=== PATIENT | male | born 1990 | race Caucasian/White ===

== ENCOUNTER 2019-11-14 06:22 | Day surgery (SDC) | payer MEDICARE, MEDICAID ==
[2019-11-14] MEDS ORDERED: DEPAKOTE500 MG PO (07:05)
[2019-11-14] MEDS ORDERED: TOPROL XL 50MG50 MG PO (07:05)
[2019-11-14] MEDS ORDERED: COLACE 100100 MG/CAP PO (07:06)
[2019-11-14] MEDS ORDERED: SEROQUEL 1100 MG/TAB PO (07:06)
[2019-11-14] MEDS ORDERED: LEXAPRO 5MG5 MG PO (07:06)
[2019-11-14] MEDS ORDERED: RESTORIL 77.5 MG/CAP PO (07:06)
[2019-11-14 07:07] VITALS: BP 122/91; PULSE 91; TEMP 98.4
--- NOTE | 2019-11-14 09:35 | NUR ---
TO FROM PACU. PATIENT BECOMING ANXIOUS. DISCONTINUED IV AND INT UPON RETURNING TO . RECEIVED DIET PEPSI. MOTHER GETTING PATIENT DRESSED TO GO HOME.
--- NOTE | 2019-11-14 09:50 | NUR ---
MOTHER RECIEVED DISCHARGE INSTRUCTIONS AND VERBALIZED UNDERSTANDING.
--- NOTE | 2019-11-14 10:00 | NUR ---
AMBULATED OUT WITH MOTHER ACCOMPANIED WITH NURSING STAFF.
[2019-11-14 11:33] VITALS: BP 120/84; PULSE 89; TEMP 97.8
== END 2019-11-14 10:00 | disposition home or self-care (01) ==
LOC: SDCO 06:22
DX: K02.9 Dental caries, unspecified (principal); K05.10 Chronic gingivitis, plaque induced; K04.7 Periapical abscess without sinus; B07.0 Plantar wart; F84.0 Autistic disorder; F39 Unspecified mood [affective] disorder; E03.9 Hypothyroidism, unspecified; R00.0 Tachycardia, unspecified; E78.2 Mixed hyperlipidemia; F41.0 Panic disorder [episodic paroxysmal anxiety]; F43.0 Acute stress reaction; Z79.899 Other long term (current) drug therapy; I10 Essential (primary) hypertension; F42.9 Obsessive-compulsive disorder, unspecified; Z86.14 Personal history of Methicillin resistant Staphylococcus aureus infection
CPT/HCPCS: J2250; J2405; J2704; J3010; J7120

== ENCOUNTER 2020-07-18 11:22 | Emergency (ER) | payer MEDICARE, MEDICAID ==
[~2020-07-18] VITALS: Ht 180.3 cm; Wt 113.6 kg
[~2020-07-18 11:22] MED LIST: COLACE 100100 MG/CAP PO; DEPAKOTE500 MG PO; LEXAPRO 5MG5 MG PO; RESTORIL 77.5 MG/CAP PO; SEROQUEL50 MG PO; TOPROL XL 50MG50 MG PO
[2020-07-18 11:27] VITALS: BP 106/70; TEMP 98.2
[2020-07-18 12:06] VITALS: PULSE 87
[2020-07-18] MEDS ORDERED: ONE-A-DAY ESSE1 EACH PO (12:14)
[2020-07-18] MEDS ORDERED: ATIVAN 0.50.5 MG/TAB PO (12:14)
[2020-07-18] MEDS ORDERED: TYLENOL 325MG325 MG PO (12:15)
[2020-07-18] MEDS ORDERED: ZYPREXA ZYD10 MG/TAB PO (12:16)
[2020-07-18] MEDS ORDERED: SYNTHROID0.075 MG/T PO (12:17)
[2020-07-18] MEDS ORDERED: ZYPREXA 5MG5 MG PO (12:17)
[2020-07-18] MEDS ORDERED: LOTRISONE CREAM15 GM TP (12:18)
[2020-07-18] MEDS ORDERED: GLUCOPHAGE500 MG/TAB PO (12:19)
== END 2020-07-18 12:06 | disposition home or self-care (01) ==
LOC: COL.ER 11:22
DX: T45.2X1A Poisoning by vitamins, accidental (unintentional), initial encounter (principal); T42.71XA Poisoning by unspecified antiepileptic and sedative-hypnotic drugs, accidental (unintentional), initial encounter; T43.221A Poisoning by selective serotonin reuptake inhibitors, accidental (unintentional), initial encounter; T46.1X1A Poisoning by calcium-channel blockers, accidental (unintentional), initial encounter; R56.9 Unspecified convulsions; I10 Essential (primary) hypertension; Z79.84 Long term (current) use of oral hypoglycemic drugs

== ENCOUNTER 2020-07-27 10:06 | Emergency (ER) | payer MEDICARE, MEDICAID ==
[~2020-07-27] VITALS: Ht 182.9 cm; Wt 113.6 kg
[~2020-07-27 10:06] MED LIST changes: +ATIVAN 0.50.5 MG/TAB PO; +GLUCOPHAGE500 MG/TAB PO; +LOTRISONE CREAM15 GM TP; +ONE-A-DAY ESSE1 EACH PO; +SYNTHROID0.075 MG/T PO; +TYLENOL 325MG325 MG PO; +ZYPREXA 5MG5 MG PO; +ZYPREXA ZYD10 MG/TAB PO
[2020-07-27 10:12] VITALS: TEMP 98.5
[2020-07-27 10:51] LABS: BASO # 0.1 (0.0-0.2); BASO % 0.5 % (0.0-2.0); EOS # 0.7 (0.0-0.7); EOS % 6.7 % (0-4.0); GRAN # 4.8 (1.4-6.5); GRAN % 47.9 % (42.2-75.2); HEMATOCRIT 44.8 % (42.0-52.0); HEMOGLOBIN 15.1 g/dl (13.5-18.0); LYMPH # 3.2 (1.2-3.4); LYMPH % 31.3 % (20.0-51.0); MEAN CELL VOLUME 83 fl (80.0-100.0); MEAN CORPUSCULAR HEMOGLOBIN 28 pg (27.0-31.0); MEAN CORPUSCULAR HGB CONC 34 g/dl (33.0-37.0); MEAN PLATELET VOLUME 9.2 fl (7.4-10.4); MONO # 1.2 (0.1-0.6); MONO % 12.2 % (1.7-9.3); PLATELET COUNT 190 K/mm3 (130-400); RED BLOOD COUNT 5.42 M/mm3 (4.20-5.60); REDCELL DISTRIBUTION WIDTH-CV 13.4 % (11.5-14.5)
[2020-07-27] MEDS ORDERED: GLUCOPHAGE500 MG/TAB PO (10:59)
[2020-07-27 11:04] LABS: ALBUMIN 4.5 gm/dL (3.5-5.0); BILIRUBIN,TOTAL 0.4 mg/dL (0.0-1.0); CALCIUM 9.5 mg/dL (8.4-10.2); CREATININE, serum 0.71 (0.66-1.25); POTASSIUM 3.5 mmol/L (3.4-5.0); TOTAL PROTEIN 7.9 gm/dL (6.4-8.2)
[2020-07-27 11:42] LABS: COLLECTION METHOD CLEAN CATCH
[2020-07-27 11:43] LABS: VALPROIC ACID (DEPAKENE) 68.4 ug/mL (50.0-100.0)
[2020-07-27 12:06] LABS: PROLACTIN 50.1 ng/mL (3.7-17.9)
[2020-07-27 12:10] LABS: MUCOUS Present /lpf; PH 5 (5-8); SQUAMOUS EPITHELIAL None Seen /hpf; URINE APPEARANCE Clear; URINE BACTERIA None Seen /hpf; URINE BILIRUBIN Negative (NEGATIVE); URINE BLOOD Negative (NEGATIVE); URINE COLOR Yellow; URINE GLUCOSE Negative (NEGATIVE); URINE KETONE Trace (NEGATIVE); URINE LEUKOCYTE ESTERASE Negative (NEGATIVE); URINE NITRATE Negative (NEGATIVE); URINE PROTEIN(semi-quant) 2+ (NEGATIVE); URINE RBC 0-2 /hpf; URINE UROBILINOGEN Negative (NEGATIVE)
[2020-07-27 12:14] LABS: TRICYCLIC ANTIDEPRESS URINE NEGATIVE
[2020-07-27 12:52] VITALS: BP 127/73; PULSE 75
== END 2020-07-27 12:54 | disposition home or self-care (01) ==
LOC: COL.ER 10:06
PROVIDERS: Physician Assistant
DX: G40.909 Epilepsy, unspecified, not intractable, without status epilepticus (principal); F31.9 Bipolar disorder, unspecified; F41.9 Anxiety disorder, unspecified; E03.9 Hypothyroidism, unspecified; Z79.890 Hormone replacement therapy; Z79.84 Long term (current) use of oral hypoglycemic drugs
CPT/HCPCS: J3360; J7030

== ENCOUNTER 2021-02-07 20:34 | Emergency (ER) | payer MEDICARE, MEDICAID ==
[2021-02-07 21:54] LABS: BASO # 0.1 (0.0-0.2); BASO % 0.6 % (0.0-2.0); EOS # 0.4 (0.0-0.7); GRAN # 5.1 (1.4-6.5); GRAN % 46.8 % (42.2-75.2); HEMATOCRIT 43.6 % (42.0-52.0); HEMOGLOBIN 14.5 g/dl (13.5-18.0); LYMPH # 3.9 (1.2-3.4); LYMPH % 36.4 % (20.0-51.0); MEAN CELL VOLUME 82 fl (80.0-100.0); MEAN CORPUSCULAR HEMOGLOBIN 27 pg (27.0-31.0); MEAN CORPUSCULAR HGB CONC 33 g/dl (33.0-37.0); MEAN PLATELET VOLUME 9.4 fl (7.4-10.4); MONO # 1.2 (0.1-0.6); MONO % 11.2 % (1.7-9.3); PLATELET COUNT 217 K/mm3 (130-400); RED BLOOD COUNT 5.31 M/mm3 (4.20-5.60)
[2021-02-07 22:07] LABS: ALBUMIN 4.4 gm/dL (3.5-5.0); BILIRUBIN,TOTAL 0.3 mg/dL (0.0-1.0); C-REACTIVE PROTEIN 2.8 mg/dL (0.0-0.9); CALCIUM 9.4 mg/dL (8.4-10.2); CREATININE, serum 0.63 (0.66-1.25); POTASSIUM 3.9 mmol/L (3.4-5.0); TOTAL PROTEIN 8.5 gm/dL (6.4-8.2)
[2021-02-08 03:15] VITALS: BP 127/79; PULSE 84; TEMP 98.9
== END 2021-02-08 03:07 | disposition home or self-care (01) ==
LOC: COL.ER 20:34
PROVIDERS: Physician Assistant
DX: L03.116 Cellulitis of left lower limb (principal)
CPT/HCPCS: J2060; J3370; J7050

== ENCOUNTER 2021-04-08 06:35 | Day surgery (SDC) | payer MEDICARE, MEDICAID ==
[~2021-04-08] VITALS: Ht 180.3 cm; Wt 121.8 kg
[2021-04-08 07:19] VITALS: PULSE 101; TEMP 97.8
[2021-04-08] MEDS ORDERED: DEPAKOTE500 MG PO (07:33)
[2021-04-08] MEDS ORDERED: COLACE 100100 MG/CAP PO (07:34)
[2021-04-08] MEDS ORDERED: LEXAPRO 5MG5 MG PO (07:34)
[2021-04-08] MEDS ORDERED: TIROSINT75 MC1 PO (07:35)
[2021-04-08] MEDS ORDERED: TOPROL XL 50MG50 MG PO (07:35)
--- NOTE | 2021-04-08 08:32 | NUR ---
Patient returns to room 4 per cart from PACU accompanied by mother and Quin RN. Patient is sitting up on end of cart and wanting to stand up. Mother very comforting to the patient and patient responds well to mother. IV fluids infusing. Unable to obtain blood pressure. Room air sats 93%. IV discontinued and site is free of redness. Mother dresses patient. Continues to attempt to stand up.
--- NOTE | 2021-04-08 08:43 | NUR ---
Patient walks in hallway with mother and Quin TSAI. Assisted into wheelchair and taken to the front door per wheelchair and assisted into vehicle and driven by mother. Mother voiced understanding of dismissal instructions and provided dismissal packet.
[2021-04-08 09:25] VITALS: PULSE 84; TEMP 97.4
== END 2021-04-08 08:43 | disposition home or self-care (01) ==
LOC: SDCO 06:35
DX: K02.9 Dental caries, unspecified (principal); K04.7 Periapical abscess without sinus; K05.10 Chronic gingivitis, plaque induced; F41.8 Other specified anxiety disorders; F80.4 Speech and language development delay due to hearing loss; F39 Unspecified mood [affective] disorder; I10 Essential (primary) hypertension; E07.9 Disorder of thyroid, unspecified; R56.9 Unspecified convulsions; F41.9 Anxiety disorder, unspecified; Z79.890 Hormone replacement therapy; Z79.899 Other long term (current) drug therapy
CPT/HCPCS: J7120

== ENCOUNTER 2021-04-20 09:44 | Emergency (ER) | payer MEDICARE, MEDICAID ==
[~2021-04-20] VITALS: Ht 180.3 cm; Wt 120.9 kg
[~2021-04-20 09:44] MED LIST changes: +TIROSINT75 MC1 PO
[2021-04-20 10:13] VITALS: BP 108/79; TEMP 97.2
[2021-04-20] MEDS ORDERED: CEPHALEXIN500 M1 PO (10:50)
[2021-04-20 11:15] VITALS: PULSE 84
[2021-04-20] MEDS ORDERED: TAB-A-VITE TA400 MCG PO (11:49)
[2021-04-20] MEDS ORDERED: CLARITIN LIQUI-10 MG PO (11:50)
[2021-04-20] MEDS ORDERED: ATIVAN 0.50.5 MG/TAB PO (11:50)
[2021-04-20] MEDS ORDERED: RESTORIL 77.5 MG/CAP PO (11:51)
[2021-04-20] MEDS ORDERED: ZYPREXA ZYDIS5 MG PO (11:51)
== END 2021-04-20 11:15 | disposition home or self-care (01) ==
LOC: COL.ER 09:44
DX: S01.01XA Laceration without foreign body of scalp, initial encounter (principal); F84.0 Autistic disorder; Z79.84 Long term (current) use of oral hypoglycemic drugs; W20.8XXA Other cause of strike by thrown, projected or falling object, initial encounter

== ENCOUNTER → 2022-06-07 | Outpatient (CLI) | payer MEDICARE, MEDICAID ==
[~2022-06-07] MED LIST changes: +CEPHALEXIN500 M1 PO; +CLARITIN LIQUI-10 MG PO; +TAB-A-VITE TA400 MCG PO; +ZYPREXA ZYDIS5 MG PO
[2022-06-07 08:39] LABS: BASO % 0.4 % (0.0-2.0); EOS # 0.4 K/mm3 (0.0-0.7); EOS % 3.8 % (0.0-4.0); GRAN # 6.2 K/mm3 (1.4-6.5); GRAN % 66.1 % (42.2-75.2); HEMATOCRIT 41.2 % (42.0-52.0); HEMOGLOBIN 13.8 g/dl (13.5-18.0); LYMPH # 1.8 K/mm3 (1.2-3.4); LYMPH % 19.5 % (20.0-51.0); MEAN CELL VOLUME 84 fl (80.0-100.0); MEAN CORPUSCULAR HEMOGLOBIN 28 pg (27-31); MEAN CORPUSCULAR HGB CONC 34 g/dl (33.0-37.0); MEAN PLATELET VOLUME 9.3 fl (7.4-10.4); MONO # 0.9 K/mm3 (0.1-0.6); MONO % 9.4 % (1.7-9.3); PLATELET COUNT 217 K/mm3 (130-400); RED BLOOD COUNT 4.92 M/mm3 (4.20-5.60); REDCELL DISTRIBUTION WIDTH-CV 13.7 % (11.5-14.5)
[2022-06-07 08:58] LABS: ALBUMIN 3.6 gm/dL (3.5-5.0); BILIRUBIN,TOTAL 0.5 mg/dL (0.2-1.2); CALCIUM 9.6 mg/dL (8.4-10.2); CHOLESTEROL RISK RATIO 11.6; CREATININE, serum 0.8 mg/dL (0.72-1.25); POTASSIUM 4.1 mmol/L (3.5-4.5); TOTAL PROTEIN 7.5 gm/dL (6.2-8.1)
[2022-06-07 09:33] LABS: THYROID STIMULATING HORMONE 1.302 uIU/mL (0.350-4.940)
== END ==
LOC: COL.LAB 08:21
PROVIDERS: Internal Medicine
DX: R73.01 Impaired fasting glucose (principal); E03.9 Hypothyroidism, unspecified; I10 Essential (primary) hypertension; E78.2 Mixed hyperlipidemia

== ENCOUNTER 2022-12-16 13:07 | Inpatient (IN) | payer MEDICARE, MEDICAID ==
[~2022-12-16] VITALS: Ht 180.3 cm; Wt 120.9 kg
[2022-12-16 13:54] LABS: COLLECTION METHOD CLEAN CATCH
[2022-12-16 14:01] LABS: URINE APPEARANCE Clear (CLEAR/HAZY); URINE BLOOD Negative (NEGATIVE); URINE COLOR Yellow (YELLOW); URINE GLUCOSE Negative (NEGATIVE); URINE KETONE Negative (NEGATIVE); URINE NITRATE Negative (NEGATIVE); URINE PROTEIN(semi-quant) 1+ (NEGATIVE)
[2022-12-16 14:07] LABS: MUCOUS Present (NOT PRESENT); SQUAMOUS EPITHELIAL None Seen /hpf (0-10); URINE BACTERIA None Seen /hpf (NONE SEEN)
[2022-12-16 14:18] LABS: ALBUMIN 2.7 gm/dL (3.5-5.0); BILIRUBIN,TOTAL 0.6 mg/dL (0.2-1.2); C-REACTIVE PROTEIN 19.14 mg/dL (0.00-0.50); CALCIUM 9.3 mg/dL (8.4-10.2); CREATININE, serum 0.91 mg/dL (0.72-1.25); POTASSIUM 3.6 mmol/L (3.5-4.5); TOTAL PROTEIN 7.8 gm/dL (6.2-8.1)
[2022-12-16 15:03] LABS: HEMOGLOBIN 11.1 g/dl (13.5-18.0); MEAN CELL VOLUME 79 fl (80.0-100.0); MEAN CORPUSCULAR HEMOGLOBIN 25 pg (27-31); MEAN CORPUSCULAR HGB CONC 32 g/dl (33.0-37.0); MEAN PLATELET VOLUME 8.5 fl (7.4-10.4); PLATELET COUNT 250 K/mm3 (130-400); RED BLOOD COUNT 4.41 M/mm3 (4.20-5.60); REDCELL DISTRIBUTION WIDTH-CV 14.6 % (11.5-14.5)
[2022-12-16 15:05] LABS: HEMATOCRIT 34.7 % (42.0-52.0)
[2022-12-16 15:49] LABS: BAND 5 % (0-10); EOSINOPHIL 1 % (0-4); LYMPHOCYTE 10 % (20.0-51.0); NEUTROPHILS 71 % (42.0-75.2); PLATELET ESTIMATE NORMAL (NORMAL)
[2022-12-16] MEDS ORDERED: DEPAKOTE500 MG PO (16:48)
[2022-12-16] MEDS ORDERED: DEPAKOTE500 MG (16:49)
[2022-12-16] MEDS ORDERED: DULCOLAX STOOL100 MG PO (16:50)
[2022-12-16] MEDS ORDERED: LEXAPRO 10MG10 MG PO (16:50)
[2022-12-16] MEDS ORDERED: TIROSINT75 MC1 PO (16:51)
[2022-12-16] MEDS ORDERED: TRICOR145 MG PO (16:51)
[2022-12-16] MEDS ORDERED: GLUCOPHAGE500 MG/TAB PO (16:52)
[2022-12-16] MEDS ORDERED: TOPROL XL 50MG50 MG PO (16:53)
[2022-12-16] MEDS ORDERED: MULTI VITAMINS1 TAB PO (16:54)
[2022-12-16] MEDS ORDERED: ZYPREXA10 MG PO (16:54)
[2022-12-16] MEDS ORDERED: TESSALON P100 MG/CAP PO (16:55)
[2022-12-16] MEDS ORDERED: DOXYCYCLINE 10100 MG PO ×2 (16:56→16:57)
[2022-12-16] MEDS ORDERED: ZYPREXA ZYDIS5 MG PO (16:59)
[2022-12-16] MEDS ORDERED: RESTORIL 77.5 MG/CAP PEG (17:00)
[2022-12-16 17:15] VITALS: BP 92/70; PULSE 102; TEMP 97.7
--- NOTE | 2022-12-16 19:04 | NUR ---
RECEIVED CHANGE OF SHIFT REPORT FROM DAY SHIFT RN. MOM AT BEDSIDE, PATIENT RESTING IN BED, IV ANTIBIOTIC INFUSING PER GRAVITY WITH NO PROBLEMS. PATIENT PRESENTS WITH NO OUTWARD SIGNS OF DISCOMFORT AT THIS TIME.
[2022-12-16 20:06] VITALS: BP 106/59; PULSE 99; TEMP 98.3
[2022-12-16 23:18] VITALS: BP 121/79; PULSE 105; TEMP 98
--- NOTE | 2022-12-16 23:58 | NUR ---
IV SITE SALINE LOCKED PER MOM'S REQUEST AFTER ZOSYN INFUSION COMPLETED FOR THIS TIME DOSING.
--- NOTE | 2022-12-17 01:16 | NUR ---
MOM REPORTS PATIENT IS RESTLESS, UP IN WHEELCHAIR, MOM PUSHING PATIENT AROUND UNIT WHILE PATIENT SITTING IN W/C. MOM REQUESTED PEPSI/POP FOR PATIENT. REFUSED OFFER OF ATIVAN OR HALDOL AT THIS TIME. PATIENT BACK IN BED AFTER GETTINGOUT OF W/C, RESTING QUIETLY IN BED.
--- NOTE | 2022-12-17 01:40 | NUR ---
PATIENT PULLED OUT IV FROM RAC, MOM REQUESTING MED TO HELP WITH PATIENT'S RESTLESS AND SLIGHT AGITATION. SEE MAR FOR ATIVAN GIVEN. PATIENT COOPERATIVE IN TAKE ORAL MEDS AT THIS TIME. CONTINUES TO DRINK FLUIDS, UNABLE TO TAKE SMALL SIPS DUE TO AUTISM. MOM CONTINUES AT BEDSIDE.
[2022-12-17 01:49] LABS: CLOSTRIDIUM DIFF A/B NEG
--- NOTE | 2022-12-17 03:39 | NUR ---
INFORMED ONCALL PROVIDER THAT IV IS OUT FOR NOW. NO NEW ORDERS GIVEN AT THIS TIME.
[2022-12-17 05:54] VITALS: BP 122/84; PULSE 98; TEMP 98.6
[2022-12-17 06:22] LABS: HEMOGLOBIN 10.6 g/dl (13.5-18.0); MEAN CELL VOLUME 79 fl (80.0-100.0); MEAN CORPUSCULAR HEMOGLOBIN 25 pg (27-31); MEAN CORPUSCULAR HGB CONC 32 g/dl (33.0-37.0); MEAN PLATELET VOLUME 8.7 fl (7.4-10.4); PLATELET COUNT 221 K/mm3 (130-400); RED BLOOD COUNT 4.18 M/mm3 (4.20-5.60); REDCELL DISTRIBUTION WIDTH-CV 14.6 % (11.5-14.5)
[2022-12-17 06:31] LABS: CALCIUM 8.6 mg/dL (8.4-10.2); CREATININE, serum 0.89 mg/dL (0.72-1.25); POTASSIUM 3.8 mmol/L (3.5-4.5); VALPROIC ACID (DEPAKENE) 77.1 ug/mL (43.5-90.5)
[2022-12-17 06:41] LABS: HEMATOCRIT 32.8 % (42.0-52.0)
--- NOTE | 2022-12-17 07:18 | NUR ---
CHANGE OF SHIFT REPORT GIVEN TO DAY SHIFT RNANDRY. INFORMED ONCOMING SHIFT THAT IV IS STILL OUT SO IV MEDS WERE NOT GIVEN ORDERED. MOM IN ROOM WITH PATIENT, BOTH WERE SLEEPING DURING REPORT.
[2022-12-17 07:38] LABS: BAND 15 % (0-10); BASOPHIL 1 % (0-2); HYPOCHROMIA 1+; LYMPHOCYTE 13 % (20.0-51.0); MICROCYTOSIS 1+; NEUTROPHILS 65 % (42.0-75.2); PLATELET ESTIMATE NORMAL (NORMAL)
--- NOTE | 2022-12-17 08:02 | NUR ---
Patient mother request we let patient rest at this time, due to patient being in a deep sleep. Will let him rest at this time
--- NOTE | 2022-12-17 08:21 | NUR ---
Made aware patient has no Iv, patient needs Iv, when he wakes will attempt.
[2022-12-17 10:09] VITALS: BP 104/57; PULSE 111; TEMP 98.8
[2022-12-17 11:44] VITALS: BP 99/61; PULSE 82; TEMP 99.4
--- NOTE | 2022-12-17 11:45 | NUR ---
Patient father at bedside. He is assisting patient with liquids. Immodium given, patient falls asleep easy. Heart rate improved after metoprolol. Low grade temp noted. heavy blankets removed from patient. sheet left on
--- NOTE | 2022-12-17 13:20 | NUR ---
Patient resting in bed. He was up to chair & up to the bathroom briefly. Reported he was going to vomit, but no emesis. His family has helped him to the bathroom, per mothers reports he continues to have loose stools. Patient tolerating clears. rounded, he is aware we were unsuccessful starting IV with 2 attempted made. Patient no longer agreeable to "shots". PO antibioitcs started.
--- NOTE | 2022-12-17 14:46 | NUR ---
Patient mother back at bedside. She is assisting patient to shower. Patient has continued to sleep most of the afternoon. I did discuss with her again, attempted to restart IV, she was not interested, reports she will continue to push PO fluids. QUALITY CONTROL OPERATOR changing bed linens
[2022-12-17 15:48] VITALS: BP 126/76; PULSE 82; TEMP 96.9
--- NOTE | 2022-12-17 17:54 | NUR ---
Patient resting in bed. Patient continue tolerate PO intake, his supportive mother at bedside. Patient took Po antibioitcs without problems. His mother reports another episode or loose stool.
[2022-12-17 17:59] VITALS: PULSE 88; TEMP 98.6
--- NOTE | 2022-12-17 19:00 | NUR ---
RECEIVED CHANGE OF SHIFT REPORT FROM DAY SHIFT RN. PATIENT SLEEPING IN BED, FATHER AT BEDSIDE. PATIENT DOES NOT WAKE WHEN STAFF ENTER ROOM ON ROUNDS, BREATHING EVEN AND NONLABORED AT THIS TIME.
--- NOTE | 2022-12-17 19:12 | NUR ---
Patient up in room. parents at bedside. Tolerating po intake.
[2022-12-17 20:00] VITALS: BP 105/75; PULSE 96; TEMP 97.7
[2022-12-18 01:45] VITALS: BP 97/55; PULSE 95; TEMP 98.7
--- NOTE | 2022-12-18 02:00 | NUR ---
PATIENT REPORTED LOOSE STOOLS, DID NOT OBSERVE APPEARANCE OF STOOL WITH PATIENT HAVING FLUSHED STOOL BEFORE HAVING STAFF OBSERVE STOOL APPEARANCE. SEE MAR FOR TIME LOMOTIL GIVEN. NO OTHER NEEDS REPORTED AT THIS TIME.
--- NOTE | 2022-12-18 02:34 | NUR ---
MOM REPORTED THAT PATIENT COMPLAINED OF HIS "STOMACH HURTING" AND REQUESTED TYLENOL FOR PATIENT. SEE MAR FOR MED GIVEN. NO OTHER PATIENT RELATED NEEDS VOICED AT THIS TIME.
[2022-12-18 06:23] LABS: HEMOGLOBIN 10.5 g/dl (13.5-18.0); MEAN CELL VOLUME 80 fl (80.0-100.0); MEAN CORPUSCULAR HEMOGLOBIN 25 pg (27-31); MEAN CORPUSCULAR HGB CONC 32 g/dl (33.0-37.0); MEAN PLATELET VOLUME 8.8 fl (7.4-10.4); PLATELET COUNT 212 K/mm3 (130-400); RED BLOOD COUNT 4.18 M/mm3 (4.20-5.60); REDCELL DISTRIBUTION WIDTH-CV 14.6 % (11.5-14.5)
[2022-12-18 06:30] LABS: HEMATOCRIT 33.3 % (42.0-52.0)
[2022-12-18 06:49] LABS: C-REACTIVE PROTEIN 16.88 mg/dL (0.00-0.50); CALCIUM 8.9 mg/dL (8.4-10.2); CREATININE, serum 0.83 mg/dL (0.72-1.25); POTASSIUM 3.5 mmol/L (3.5-4.5)
--- NOTE | 2022-12-18 07:06 | NUR ---
CHANGE OF SHIFT REPORT GIVEN TO DAY SHIFT ANDRY TSAI.
[2022-12-18 07:42] LABS: BAND 14 % (0-10); LYMPHOCYTE 20 % (20.0-51.0); METAMYELOCYTE 3 % (0-0); NEUTROPHILS 54 % (42.0-75.2); PLATELET ESTIMATE NORMAL (NORMAL)
[2022-12-18 08:23] VITALS: BP 124/79; PULSE 90; TEMP 97.9
--- NOTE | 2022-12-18 08:30 | NUR ---
rounded, plan of care reviewed. Patient awake, tolerated Po medications this am & clear liquids without nausea. Patient unable to verbalized any pain. His supportive mother remains at bedside side. She is concerned about his watery stools, she thought she see saw blood, when this nurse visualized, no blood seen. I did discussed with mother that the po antibioitcs could be contributing to patient loose stool. Patient has had his night and days mixed around, blinds open with sunshine to try to keep patient awake today and try to get patient back on his normal routine.
--- NOTE | 2022-12-18 10:02 | NUR ---
Initial visit; Patient and his mother will be in Hvac Maintenance Technician's prayers. Washington' mom thanked for stopping in, wishing Washington well and keeping him in her prayers.
[2022-12-18 10:47] VITALS: BP 98/76; PULSE 86; TEMP 98.4
--- NOTE | 2022-12-18 11:02 | NUR ---
The patient has a history of autism and is nonverbal. AMIRA met with the patient and his mother, Dione (ph#[phone]), to discuss discharge plan. The patient resides at the [facility]. . The patient's PCP is Dr. Warren Fernandez and he receives his medications from [facility] and [facility]. Dione states that her and her , Sreekanth, are the patient's legal guardians. She does not have the documents, but states they are at home. Dione states that the plan is for the patient to return back to [facility] [place] upon discharge and they can provide transportation. Dione notified AMIRA that the patient is a DNR. AMIRA notified the patient's RN of this. AMIRA contacted and faxed updates to Kimmie at [facility] [place] fx#[phone]. *Discharge plan: [facility]*
--- NOTE | 2022-12-18 11:35 | NUR ---
Patient returned from CT scan. This nurse and mother remains at his side during scan. Patient did well. cashier supervisor Ayo was able to start IV to Lac. Patient tolerated & was cooperative. Iv remains in place with halima wrap covering site. Patient continues to drink clear liquids, but is having watery stools noted to be cardenas in color, not blood seen
--- NOTE | 2022-12-18 12:59 | NUR ---
Patient up indepedent in room, smiling, in good spirits. Watching shows on ipad and coloring on paper making a birthday list. Family at bedside.
--- NOTE | 2022-12-18 14:43 | NUR ---
made aware of radiology report being dictated. Patient mother eager to know plan of care. Awaiting to round
[2022-12-18] MEDS ORDERED: AMOXICILLIN 8751 TAB PO (15:00)
[2022-12-18] MEDS ORDERED: FLAGYL500 MG PO (15:00)
[2022-12-18] MEDS ORDERED: ZOFRAN ODT4 MG PO (15:02)
[2022-12-18] MEDS ORDERED: IMODIUM AD1 MG/5 ML PO (15:11)
--- NOTE | 2022-12-18 15:38 | NUR ---
Patient ready for discharge. Order recieved. and rounded & plan of care reviewed. Orders reviewed with parents. Cristy ready to go. Social work faxed discharge paperowork. INT DC. Patient wheeled out with all belonings. His parents taking him home
--- NOTE | 2022-12-18 16:28 | NUR ---
Cigar Tobacco Rehandler contacted Kimmie Fast Brim Pouncer at [facility] and faxed clinical updates and discharge orders.
== END 2022-12-18 16:00 | disposition home or self-care (01) | DRG 394 ==
LOC: COL.ER 13:07 → SURG 15:20
PROVIDERS: Family Medicine; Nurse Practitioner; ADMIT Internal Medicine
DX: K63.1 Perforation of intestine (nontraumatic) (principal); F84.0 Autistic disorder; K52.9 Noninfective gastroenteritis and colitis, unspecified; K76.0 Fatty (change of) liver, not elsewhere classified; E03.9 Hypothyroidism, unspecified; G40.909 Epilepsy, unspecified, not intractable, without status epilepticus; F41.9 Anxiety disorder, unspecified; Z66 Do not resuscitate; I10 Essential (primary) hypertension; E66.9 Obesity, unspecified; J40 Bronchitis, not specified as acute or chronic; Z79.890 Hormone replacement therapy; Z79.84 Long term (current) use of oral hypoglycemic drugs; Z23 Encounter for immunization; Z68.37 Body mass index [BMI] 37.0-37.9, adult
CPT/HCPCS: J2060; J2405; J2543; J7030; Q9967